=== PATIENT | female | born 1965 | race Two or more races ===

== ENCOUNTER → 2019-01-03 | Outpatient (CLI) | payer OTHER ==
[~2019-01-03] MED LIST: GADOBUTROL 7.5 MMOL/7.5 ML VIAL IV ONE
[2019-01-03 12:12] LABS: CREATININE 0.6 mg/dL (0.6-1.0)
--- NOTE | 2019-01-05 16:43 | RAD ---
Indication: Pelvic mass. TECHNIQUE: Multiplanar multisequence MRI of the pelvis without and with 6 mL of IV contrast. COMPARISON: None FINDINGS: There is a well-circumscribed mass in the left adnexa measuring 5.5 x 4.6 x 5.3 cm demonstrating heterogenous T2 signal, low to isointense T1 signal and minimal postcontrast enhancement. No internal fat is seen. This mass shows restricted diffusion. There is mass effect on the left uterine body causing displacement of the uterus to the right side. Left ovary is not distinctly visualized separate from the mass. Right ovary seen. Small amount of fluid is seen surrounding this mass in the pelvis. There is mild mass effect on the rectum dispersing into the right side. No high intensity T1 signal to suggest hemorrhagic products or proteinaceous debris. Urinary bladder is within normal limits. No enlarged pelvic or inguinal lymph nodes. Cervix within normal limits. No enhancing bone lesion. IMPRESSION: Left adnexal mass as described above. Left ovary is not distinctly seen apart from this mass. Differential diagnoses includes solid left ovarian neoplasm or less likely large pedunculated fibroid originating from the left lateral uterine body. Correlation with ovarian tumor markers is recommended. Ultrasound of the pelvis also recommended to assess for vascularity in this lesion. Surgical consultation recommended. Electronically signed by: Dejuan Youssef DO (01/05/2019 4:40 PM) [facility]
== END | disposition home or self-care (01) ==
LOC: MRI 10:51
PROVIDERS: ATTEND Physician Assistant Medical
DX: N94.9 Unspecified condition associated with female genital organs and menstrual cycle (principal); N85.4 Malposition of uterus
CPT/HCPCS: 36415; 72197; 82565; A9585